=== PATIENT | female | born 1990 | race Caucasian/White ===

== ENCOUNTER 2018-08-24 00:26 | Emergency (ER) | payer SELFPAY ==
[~2018-08-24] VITALS: Ht 154.9 cm; Wt 67.1 kg
[2018-08-24 00:37] VITALS: BP 151/94
--- NOTE | 2018-08-24 00:40 | NUR ---
PT TO RAFAEL COLON, URINE SAMPLE CUP GIVEN, VSS, PT AMBULATORY.
--- NOTE | 2018-08-24 03:13 | NUR ---
CALLED FOR PT IN THE LOBBY AND GOT NO RESPONSE.
--- NOTE | 2018-08-24 03:20 | NUR ---
NO ANSWER @ 4140 AND 1766. PATIENT LEFT WITHOUT BEING SEEN BY DR. HAMMOND. NO FURTHER CARE PROVIDED FOR PATIENT.
== END 2018-08-24 03:20 | disposition left against medical advice (07) ==
LOC: MED 00:26
DX: R51 Headache (principal); R42 Dizziness and giddiness; Z53.21 Procedure and treatment not carried out due to patient leaving prior to being seen by health care provider

== ENCOUNTER 2018-11-22 16:07 | Emergency (ER) | payer MEDICAID ==
[~2018-11-22] VITALS: Ht 154.9 cm; Wt 64.0 kg
[2018-11-22 16:11] VITALS: BP 132/70
--- NOTE | 2018-11-22 16:15 | NUR ---
Note undone in EDM - 11/22/18 at 1649 by MED BIB FATHER. AAO X4 C/O SQUEEZING CHEST PAIN 9 X 1 HR AGO, HEADACHE , NAUSEA, VOMITING, DIZZINESS, TINGLING OF HANDS AND FEET. PT DENIES FEVER, SOB. PERRLA, BRISK 3 MM, FULL CLEAR SPEECH, FACIAL SYMMETRY, EQUAL ANIYAH STRENGTH TO UPPER AND LOWER EXTREMITIES. PT AMBULATED TO THE BATHROOM WITH STEADY GAIT. PT PLACED ON FULL JOINERY PATTERNMAKER. HOB UP. BED SIDE RAILS UP X1. ON LOW BED POSITION, LOCKED. ER TO ASSESS PT.
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
[2018-11-22] MEDS ORDERED: LORazepam 2 MG/ML VIAL IVP ONE (16:45)
[2018-11-22] MEDS ORDERED: PROMETHAZINE 25 MG SUPP RC ONE (16:45)
[2018-11-22] MEDS ORDERED: NACL 0.9% 2,000 ML IV SCH (16:45)
[2018-11-22] MEDS ORDERED: ONDANSETRON 4 MG/2 ML VIAL IVP ONE (16:45)
[2018-11-22] MEDS ORDERED: MECLIZINE 25 MG TAB PO ONE (16:45)
[2018-11-22 16:58] LABS: BASOPHILS % (AUTO) 0.3 % (0.0-2.0); EOSINOPHILS # (AUTO) 0.1 K/uL (0-0.4); EOSINOPHILS % (AUTO) 0.4 % (0.0-4.0); HEMATOCRIT 43.6 % (36-48); HEMOGLOBIN 15.1 g/dL (12.0-16.0); LYMPHOCYTES # (AUTO) 2.5 K/uL (2.5-16.5); LYMPHOCYTES % (AUTO) 19.2 % (20.5-51.1); MEAN CORPUSCULAR HEMOGLOBIN 30 pg (27-31); MEAN CORPUSCULAR HGB CONC 35 g/dL (33-37); MEAN CORPUSCULAR VOLUME 87.3 fL (80-94); MONOCYTES # (AUTO) 0.7 K/uL (0.8-1.0); MONOCYTES % (AUTO) 5.5 % (1.7-9.3); NEUTROPHILS # (AUTO) 9.8 K/uL (1.8-7.7); NEUTROPHILS % (AUTO) 74.6 % (42.2-75.2); PLATELET COUNT (AUTO) 237 K/uL (140-450); RED CELL DISTRIBUTION WIDTH 12.5 % (11.6-13.7); WHITE BLOOD COUNT (AUTO) 13.1 K/uL (4.8-10.8)
--- NOTE | 2018-11-22 17:00 | NUR ---
PT AAO X4. FULL CLEAR SPEECH. ABLE TO VERBALIZED NEEDS. CONVERSATING APPROPRIATELY. VSS. WILL CONTINUE TO MONITOR.
[2018-11-22 17:08] LABS: ANION GAP 15.6 (8-16); CARBON DIOXIDE 20.9 mmol/L (21-32); CREATININE 0.8 mg/dL (0.6-1.3); POTASSIUM 3.5 mmol/L (3.5-5.1)
[2018-11-22 17:14] LABS: ALBUMIN 4.2 g/dL (3.4-5.0); TOTAL BILIRUBIN 0.9 mg/dL (0.0-1.0)
--- NOTE | 2018-11-22 17:30 | NUR ---
PT AMBULATED TO THE BATHROOM WITH STEADY GAIT.
--- NOTE | 2018-11-22 17:38 | NUR ---
PT BACK TO BED WITH STEADY GAIT.
[2018-11-22 18:07] LABS: APPEARANCE,URINE CLEAR (CLEAR); BILIRUBIN,URINE NEGATIVE (NEGATIVE); BLOOD, URINE NEGATIVE (NEGATIVE); COLOR,URINE ORANGE (YELLOW); LEUKOCYTE ESTERASE ,URINE NEGATIVE (NEGATIVE); NITRITE, URINE NEGATIVE (NEGATIVE); UGLUCOSE NEGATIVE (NEGATIVE)
[2018-11-22 18:15] LABS: BARBITURATE, URINE NEG. ng/ml (NEG <=200); BENZODIAZEPINE, URINE NEG. ng/mL (NEG <=200); CANNABINOID, URINE NEG. ng/mL (NEG <=50); COCAINE, URINE NEG. ng/mL (NEG <=300); OPIATE, URINE NEG. ng/mL (NEG <=2000); PHENCYCLIDINE SCREEN,URINE NEG. ng/mL (NEG <=25)
--- NOTE | 2018-11-22 18:20 | NUR ---
PT TAKEN TO CT VIA BED BY E COMMER[employer] SPECIALIST
--- NOTE | 2018-11-22 18:31 | NUR ---
PT TAKEN TO ROOM VIA BED BY NUTTER UP
--- NOTE | 2018-11-22 18:45 | NUR ---
DR GODINEZ AT BEDSIDE FOR PT RE EVALUATION
--- NOTE | 2018-11-22 19:12 | NUR ---
Pt report given to ROLANDO Miles. Transfer of care at this time.
[2018-11-22 19:13] LABS: PROTHROMBIN TIME 10.6 secs (10.8-13.4)
[2018-11-22 19:15] VITALS: BP 102/61
--- NOTE | 2018-11-22 19:15 | NUR ---
Patient discharged with v/s stable. Written and verbal after care instructions given and explained. Patient alert, oriented and verbalized understanding of instructions. Ambulatory with steady gait. All questions addressed prior to discharge. ID band removed. Patient advised to follow up with PMD. Rx of ANITVERT AND PROMETHAZINE given. Patient educated on indication of medication including possible reaction and side effects. Opportunity to ask questions provided and answered.
[2018-11-22 19:48] LABS: D-DIMER < 100 ng/ml (0-400)
== END 2018-11-22 19:15 | disposition home or self-care (01) ==
LOC: MED 16:07
DX: T67.5XXA Heat exhaustion, unspecified, initial encounter (principal); E86.0 Dehydration; R07.89 Other chest pain; X30.XXXA Exposure to excessive natural heat, initial encounter; Y93.G3 Activity, cooking and baking; Y92.090 Kitchen in other non-institutional residence as the place of occurrence of the external cause; Y99.8 Other external cause status
CPT/HCPCS: 36415; 70450; 71045; 80053; 80305; 81003; 81025; 84484; 84703; 85025; 85379; 85610; 93005; 96361; 96374; 96375; 99284; J2060; J2405; J2550; J8597; J7030

== ENCOUNTER 2019-01-17 16:20 | Emergency (ER) | payer MEDICAID, OTHER ==
[~2019-01-17] VITALS: Ht 154.9 cm; Wt 65.3 kg
[2019-01-17 16:23] VITALS: BP 117/77
[2019-01-17 17:19] LABS: APPEARANCE,URINE CLEAR (CLEAR); BILIRUBIN,URINE NEGATIVE (NEGATIVE); BLOOD, URINE NEGATIVE (NEGATIVE); LEUKOCYTE ESTERASE ,URINE NEGATIVE (NEGATIVE); NITRITE, URINE NEGATIVE (NEGATIVE); UGLUCOSE NEGATIVE (NEGATIVE)
[2019-01-17 17:20] LABS: COLOR,URINE STRAW (YELLOW)
[2019-01-17 17:40] VITALS: BP 112/77
== END 2019-01-17 17:40 | disposition home or self-care (01) ==
LOC: MED 16:20
DX: K59.00 Constipation, unspecified (principal); R30.0 Dysuria
CPT/HCPCS: 74018; 81003; 81025; 99284; Q0092

== ENCOUNTER 2019-01-30 15:18 | Emergency (ER) | payer OTHER ==
[~2019-01-30] VITALS: Ht 154.9 cm; Wt 65.8 kg
[2019-01-30 15:23] VITALS: BP 146/79
--- NOTE | 2019-01-30 15:47 | NUR ---
28F C/O SORE THROAT AND COUGH X3 WEEKS. PT STATES PAIN HAS WORSENED TODAY AND IS AT 8/10. PT COUGHS UP THICK CLEAR YELLOW PHLEM. PAIN WORSENED BY EATING. STATES N/V X WEEKS. THINKS HER SORE THROAT IS DUE TO VOMITING. MEDHX:VERTIGO RX:OMEPRAZOLE
[2019-01-30 17:22] VITALS: BP 116/65
--- NOTE | 2019-01-30 17:22 | NUR ---
Patient discharged with v/s stable. Written and verbal after care instructions given and explained. Patient alert, oriented and verbalized understanding of instructions. Ambulatory with steady gait. All questions addressed prior to discharge. ID band removed. Patient advised to follow up with PMD. Rx of PREDNISONE 20 MG, MOTRIN 600 MG given. Patient educated on indication of medication including possible reaction and side effects. Opportunity to ask questions provided and answered.
== END 2019-01-30 17:22 | disposition home or self-care (01) ==
LOC: MED 15:18
DX: J02.9 Acute pharyngitis, unspecified (principal)
CPT/HCPCS: 99283

== ENCOUNTER 2019-02-03 10:37 | Emergency (ER) | payer OTHER ==
[~2019-02-03] VITALS: Ht 154.9 cm; Wt 65.3 kg
[2019-02-03 10:43] VITALS: BP 128/71
--- NOTE | 2019-02-03 10:50 | NUR ---
PATIENT AMBULATED TO BED 12
--- NOTE | 2019-02-03 11:00 | NUR ---
PT PRESENTS TO ED WITH C/O SORE THROAT, UNABLE TO SWALLOW, AND DIFFICULTY BREATHING FOR ONE WEEK. LUNGS CLEAR; O2 SAT 99% ON RA. NO ACCESSORY MUSCLE USE NOTED. PT AWAKE, ALERT AND ORIENTED TO PERSON, PLACE, TIME AND EVENT. DENIES ANY NAUSEA, VOMITING OR DIZZINESS. DENIES BLURRED/DOUBLE VISION. DENIES DRUG USE OR RECENT ILLNESS. CONNECTED TO TECHNICAL ADJUSTER; VSS. BED LOCKED AND IN LOWEST POSITION; ERMD TO EVALUATE PT. MED HX: ANXIETY, VERTIGO, MIGRAINES RX: DENIES
[2019-02-03 11:44] VITALS: BP 114/78
--- NOTE | 2019-02-03 11:44 | NUR ---
Patient discharged with v/s stable. Written and verbal after care instructions given and explained. Patient alert, oriented and verbalized understanding of instructions. Ambulatory with steady gait. All questions addressed prior to discharge. ID band removed. Patient advised to follow up with PMD. Rx of Omeprazole given. Patient educated on indication of medication including possible reaction and side effects. Opportunity to ask questions provided and answered.
== END 2019-02-03 11:44 | disposition home or self-care (01) ==
LOC: MED 10:37
DX: K20.9 Esophagitis, unspecified (principal); F41.9 Anxiety disorder, unspecified; G43.909 Migraine, unspecified, not intractable, without status migrainosus; Z88.8 Allergy status to other drugs, medicaments and biological substances
CPT/HCPCS: 99283

== ENCOUNTER 2019-02-05 13:50 | Emergency (ER) | payer OTHER ==
[~2019-02-05] VITALS: Ht 154.9 cm; Wt 65.3 kg
[2019-02-05 14:16] VITALS: BP 135/81
--- NOTE | 2019-02-05 15:15 | NUR ---
CALLED FIRST TIME, PT IS NOT IN THE LOBBY OR OUTSIDE.
--- NOTE | 2019-02-05 15:30 | NUR ---
CALLED 2ND TIME, PT IS NOT IN THE LOBBY OR BATHROOM.
--- NOTE | 2019-02-05 15:43 | NUR ---
3ND TIME CALLED PT, NO RESPOND, NOT IN THE LOBBY OR OUTSIDE, PT LEFT WITHIN BEING SEEN.
== END 2019-02-05 15:43 | disposition left against medical advice (07) ==
LOC: MED 13:50
DX: R07.0 Pain in throat (principal); Z53.21 Procedure and treatment not carried out due to patient leaving prior to being seen by health care provider

== ENCOUNTER 2019-03-13 03:19 | Emergency (ER) | payer OTHER ==
[~2019-03-13] VITALS: Ht 154.9 cm; Wt 66.2 kg
[2019-03-13 03:24] VITALS: BP 117/54
[2019-03-13 04:04] LABS: BASOPHILS % (AUTO) 0.3 % (0.0-2.0); EOSINOPHILS # (AUTO) 0.1 K/uL (0-0.4); EOSINOPHILS % (AUTO) 1.4 % (0.0-4.0); HEMATOCRIT 40.7 % (36-48); HEMOGLOBIN 13.9 g/dL (12.0-16.0); LYMPHOCYTES # (AUTO) 3.1 K/uL (2.5-16.5); LYMPHOCYTES % (AUTO) 29.8 % (20.5-51.1); MEAN CORPUSCULAR HEMOGLOBIN 30 pg (27-31); MEAN CORPUSCULAR HGB CONC 34 g/dL (33-37); MEAN CORPUSCULAR VOLUME 87.9 fL (80-94); MONOCYTES # (AUTO) 0.7 K/uL (0.8-1.0); MONOCYTES % (AUTO) 6.7 % (1.7-9.3); NEUTROPHILS # (AUTO) 6.4 K/uL (1.8-7.7); NEUTROPHILS % (AUTO) 61.8 % (42.2-75.2); PLATELET COUNT (AUTO) 219 K/uL (140-450); RED BLOOD CELL COUNT(AUTO) 4.63 MIL/uL (4.20-5.40); RED CELL DISTRIBUTION WIDTH 12.4 % (11.6-13.7); WHITE BLOOD COUNT (AUTO) 10.3 K/uL (4.8-10.8)
[2019-03-13] MEDS: ONDANSETRON 4 MG ODT PO ONE (04:04)
[2019-03-13] MEDS: FAMOTIDINE 20 MG TAB PO ONE (04:04)
[2019-03-13] MEDS: DICYCLOMINE HCL LIQUID 20 MG, ALUMINUM HYD/MAG/SIMETHICONE 30 ML, LIDOCAINE VISCOUS 2% ... PO ONE ×3 (04:06)
[2019-03-13 04:13] LABS: ANION GAP 12.1 (8-16); CARBON DIOXIDE 26.3 mmol/L (21-32); CREATININE 0.7 mg/dL (0.6-1.3); POTASSIUM 3.4 mmol/L (3.5-5.1)
[2019-03-13 04:19] LABS: ALBUMIN 3.8 g/dL (3.4-5.0); TOTAL BILIRUBIN 0.9 mg/dL (0.0-1.0)
[2019-03-13 05:00] VITALS: BP 120/70
== END 2019-03-13 05:00 | disposition home or self-care (01) ==
LOC: MED 03:19
DX: K21.9 Gastro-esophageal reflux disease without esophagitis (principal); K29.70 Gastritis, unspecified, without bleeding; K20.9 Esophagitis, unspecified; F41.9 Anxiety disorder, unspecified; R11.2 Nausea with vomiting, unspecified; Z88.8 Allergy status to other drugs, medicaments and biological substances
CPT/HCPCS: 36415; 80053; 81002; 81025; 83690; 85025; 99284; Q0162

== ENCOUNTER 2019-03-26 12:37 | Emergency (ER) | payer OTHER ==
[~2019-03-26] VITALS: Ht 154.9 cm; Wt 65.8 kg
[2019-03-26 12:44] VITALS: BP 110/69
--- NOTE | 2019-03-26 13:10 | NUR ---
PATIENT AMBULATED TO BED 7 AT THIS TIME.
--- NOTE | 2019-03-26 13:30 | NUR ---
28/F PRESENTS TO ED, C/O LOWER ABD PAIN X1 WEEK. REPORTS THAT SHE WAS CONSTIPATED 5 DAYS AGO, STARTED TAKING OTC MIRALAX AND THEN STARTED HAVING DIARRHEA X3 DAYS. DENIES FEVER, N/V. PT AWAKE AND ALERT, SKIN NORMAL COLOR WARM AND DRY, RRE EVEN AND UNLABORED. HX VERTIGO OTC MIRALAX
--- NOTE | 2019-03-26 13:30 | NUR ---
AT BEDSIDE EVALUATING PATIENT
[2019-03-26] MEDS ORDERED: KETOROLAC 60 MG/2 ML VIAL IM ONE (13:40)
[2019-03-26 14:27] VITALS: BP 115/67
--- NOTE | 2019-03-26 14:27 | NUR ---
Patient discharged with v/s stable. Written and verbal after care instructions given and explained. Patient alert, oriented and verbalized understanding of instructions. Ambulatory with steady gait. All questions addressed prior to discharge. ID band removed. Patient advised to follow up with PMD. Rx of Motrin and Tramadol given. Patient educated on indication of medication including possible reaction and side effects. Opportunity to ask questions provided and answered.
== END 2019-03-26 14:27 | disposition home or self-care (01) ==
LOC: MED 12:37
DX: R19.7 Diarrhea, unspecified (principal); Z88.8 Allergy status to other drugs, medicaments and biological substances
CPT/HCPCS: 74018; 81002; 81025; 96372; 99283; J1885; Q0092

== ENCOUNTER 2019-03-31 12:13 | Emergency (ER) | payer OTHER ==
[~2019-03-31] VITALS: Ht 165.1 cm; Wt 64.4 kg
[2019-03-31 12:16] VITALS: BP 107/65
--- NOTE | 2019-03-31 12:20 | NUR ---
PT TO BED 3 WITH STEADY GAIT
--- NOTE | 2019-03-31 12:26 | NUR ---
C/O LUQ AB PAIN X 3 DAYS. VOMIT YESTERDAY X 1. HARD BOWEL MOVEMENT TODAY. PAIN 9/10 PMH- MIGRAINES. PATIENT STATES PAIN OF 9/10 AT THIS TIME;PATIENT POSITIONED FOR COMFORT; HOB ELEVATED; BEDRAILS UP X1; BED DOWN. ER MD MADE AWARE OF PT STATUS.
--- NOTE | 2019-03-31 12:27 | NUR ---
Patient being evaluated by DR JACKMAN at bedside.
[2019-03-31] MEDS ORDERED: ACETAMINOPHEN 325 MG TAB PO ONE (12:30)
[2019-03-31 12:40] VITALS: BP 102/76
--- NOTE | 2019-03-31 12:40 | NUR ---
Patient discharged with v/s stable. Written and verbal after care instructions given and explained. Patient verbalized understanding. Ambulatory with steady gait. All questions addressed prior to discharge. Advised to follow up with PMD.
== END 2019-03-31 12:40 | disposition home or self-care (01) ==
LOC: MED 12:13
DX: S29.011A Strain of muscle and tendon of front wall of thorax, initial encounter (principal); Z88.8 Allergy status to other drugs, medicaments and biological substances; X58.XXXA Exposure to other specified factors, initial encounter; Y92.89 Other specified places as the place of occurrence of the external cause; Y93.89 Activity, other specified; Y99.8 Other external cause status
CPT/HCPCS: 99282

== ENCOUNTER 2019-04-03 13:06 | Emergency (ER) | payer OTHER ==
[~2019-04-03] VITALS: Ht 157.5 cm; Wt 64.1 kg
[2019-04-03 13:14] VITALS: BP 123/87
[2019-04-03 13:59] VITALS: BP 123/87
--- NOTE | 2019-04-03 14:00 | NUR ---
PT BIB SELF FOR "TONGUE BURNING" PT STATES SHE WOKE UP THIS AND HAD GASTRIC REFLUX SHE TOOK RANTIDINE AND NOW ONLY HER TONGUE HURTS. PT STATES SHE HAS NAUSEA AT THIS TIME. ABD FLAT, SOFT, NON TENDER. PT AWAKE AND ALERT.
--- NOTE | 2019-04-03 14:00 | NUR ---
Note flora in EDM - 04/03/19 at 1448 by MILADYS PT TO ED FOR C/O TONGUE PAIN. PT STATES "MY ACID REFLUZ WAS REALLY BAD AND THEN IT TRANSFERRED TO MY TONGUE" NO DENIES DIFFICULTY SWALLOWING. SPEAKING IN CLEAR SENTENCES. NO DROOLING. PT IN BED FOR MD PUENTES.
--- NOTE | 2019-04-03 14:50 | NUR ---
PATIENT LEFT WITHOUT BEING SEEN BY DR. DOUGLASS. NO FURTHER CARE PROVIDED FOR PATIENT.
== END 2019-04-03 14:50 | disposition left against medical advice (07) ==
LOC: MED 13:06
DX: K21.9 Gastro-esophageal reflux disease without esophagitis (principal); Z53.21 Procedure and treatment not carried out due to patient leaving prior to being seen by health care provider

== ENCOUNTER 2019-04-05 17:29 | Emergency (ER) | payer OTHER ==
[~2019-04-05] VITALS: Ht 154.9 cm; Wt 64.0 kg
[2019-04-05 17:46] VITALS: BP 130/76
[2019-04-05] MEDS ORDERED: EPINEPHrine 1:1000 - 1 MG/ML AMP IM ONE (18:10)
[2019-04-05] MEDS ORDERED: diphenhydrAMINE 50 MG/ML VIAL IVP ONE (18:10)
[2019-04-05] MEDS: FAMOTIDINE 20 MG/2 ML VIAL IVP ONE ×2 (18:33→18:42)
[2019-04-05] MEDS: NACL 0.9% 1,000 ML IV ONE ×2 (18:33→18:42)
[2019-04-05 20:07] VITALS: BP 113/73
== END 2019-04-05 20:05 | disposition home or self-care (01) ==
LOC: MED 17:29
DX: T45.0X5A Adverse effect of antiallergic and antiemetic drugs, initial encounter (principal); Z88.8 Allergy status to other drugs, medicaments and biological substances; Y92.89 Other specified places as the place of occurrence of the external cause
CPT/HCPCS: 96372; 96374; 99283; J0171; J1200; J3490

== ENCOUNTER 2019-04-18 10:58 | Emergency (ER) | payer OTHER ==
[~2019-04-18] VITALS: Ht 154.9 cm; Wt 62.6 kg
[2019-04-18 11:29] VITALS: BP 108/65
--- NOTE | 2019-04-18 11:57 | NUR ---
AMBULATED TO ER BED 5
--- NOTE | 2019-04-18 12:17 | NUR ---
PATIENT PRESENTS TO ED WITH C/O CRAMPING AND BURNING MID ABD RADIATING TO EPIGASTRIC PAIN 8/10 SINCE LAST NIGHT. +NAUSEA AND DIARRHEAS, TOOK AMOXICILLIN AND LIDOCAINE NIGHT WITH FOOD, PAIN START SOON AFTER. STATED UPPER GI ENDOSCOPY 1 WK AGO FOR LUQ PAIN AND THROAT PAIN/DYSPHAGIA, NO RESULTS YET. HX- GERD, VERTIGO . VSS; PATIENT POSITIONED FOR COMFORT; HOB ELEVATED; BEDRAILS UP X2; BED DOWN. ER MD MADE AWARE OF PT STATUS.
--- NOTE | 2019-04-18 12:30 | NUR ---
Patient being evaluated by physician at bedside.
[2019-04-18] MEDS ORDERED: NACL 0.9% 1,000 ML IV ONE (12:35)
[2019-04-18] MEDS ORDERED: NACL 0.9% 1,000 ML IV SCH (12:35)
[2019-04-18 13:21] LABS: BASOPHILS % (AUTO) 0.4 % (0.0-2.0); EOSINOPHILS % (AUTO) 0.5 % (0.0-4.0); HEMATOCRIT 43.1 % (36-48); HEMOGLOBIN 14.6 g/dL (12.0-16.0); LYMPHOCYTES # (AUTO) 1.5 K/uL (2.5-16.5); MEAN CORPUSCULAR HEMOGLOBIN 30 pg (27-31); MEAN CORPUSCULAR HGB CONC 34 g/dL (33-37); MEAN CORPUSCULAR VOLUME 89.2 fL (80-94); MONOCYTES # (AUTO) 0.4 K/uL (0.8-1.0); MONOCYTES % (AUTO) 5.7 % (1.7-9.3); NEUTROPHILS # (AUTO) 5.1 K/uL (1.8-7.7); NEUTROPHILS % (AUTO) 72.4 % (42.2-75.2); PLATELET COUNT (AUTO) 235 K/uL (140-450); RED BLOOD CELL COUNT(AUTO) 4.83 MIL/uL (4.20-5.40); RED CELL DISTRIBUTION WIDTH 12.8 % (11.6-13.7)
--- NOTE | 2019-04-18 13:30 | NUR ---
PT IS RESTING IN BED, NO S/S OF DISTRESS, DENIES PAIN, VSS.
[2019-04-18 13:34] LABS: ALBUMIN 4.5 g/dL (3.4-5.0); ANION GAP 14.2 (8-16); CARBON DIOXIDE 27.9 mmol/L (21-32); CREATININE 0.6 mg/dL (0.6-1.3); POTASSIUM 4.1 mmol/L (3.5-5.1); TOTAL BILIRUBIN 1.6 mg/dL (0.0-1.0)
[2019-04-18 14:55] LABS: APPEARANCE,URINE CLEAR (CLEAR); BILIRUBIN,URINE NEGATIVE (NEGATIVE); BLOOD, URINE TRACE-I (NEGATIVE); COLOR,URINE OTHER (YELLOW); LEUKOCYTE ESTERASE ,URINE 2+ (NEGATIVE); NITRITE, URINE NEGATIVE (NEGATIVE); PH,URINE 6.5 (5.0-9.0); UGLUCOSE NEGATIVE (NEGATIVE)
[2019-04-18 15:05] VITALS: BP 108/65
--- NOTE | 2019-04-18 15:05 | NUR ---
Patient discharged with v/s stable. Written and verbal after care instructions given and explained. Rx of FAMOTIDINE, PROTONIX given. Patient educated on indication of medication including possible reaction and side effects. All questions addressed prior to discharge. ID band removed. IV REMORVED, Patient advised to follow up with PMD.
[2019-04-18 15:19] LABS: BARBITURATE, URINE NEG. ng/ml (NEG <=200); BENZODIAZEPINE, URINE NEG. ng/mL (NEG <=200); CANNABINOID, URINE NEG. ng/mL (NEG <=50); COCAINE, URINE NEG. ng/mL (NEG <=300); OPIATE, URINE NEG. ng/mL (NEG <=2000); PHENCYCLIDINE SCREEN,URINE NEG. ng/mL (NEG <=25)
[2019-04-18 15:38] LABS: RBC,URINE 0-5 /HPF (0-5)
== END 2019-04-18 15:05 | disposition home or self-care (01) ==
LOC: MED 10:58
DX: R10.84 Generalized abdominal pain (principal); K21.9 Gastro-esophageal reflux disease without esophagitis; Z88.8 Allergy status to other drugs, medicaments and biological substances
CPT/HCPCS: 36415; 74176; 76705; 80053; 80305; 81001; 81025; 82150; 82977; 83690; 85025; 87086; 99284; J7030; Q0092

== ENCOUNTER 2019-12-06 04:22 | Emergency (ER) | payer OTHER ==
[~2019-12-06] VITALS: Ht 157.5 cm; Wt 65.8 kg
[2019-12-06 04:31] VITALS: BP 123/74
--- NOTE | 2019-12-06 04:32 | NUR ---
PT AMBULATED TO BED 4 WITH STEADY GAIT
[2019-12-06 04:38] VITALS: BP 123/74
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
[2019-12-06] MEDS ORDERED: KETOROLAC 30 MG/ML VIAL IVP ONE (04:40)
[2019-12-06] MEDS ORDERED: NACL 0.9% 1,000 ML IV ONE (04:40)
--- NOTE | 2019-12-06 04:49 | NUR ---
ERMD BEDSIDE EVALUATING PT
[2019-12-06] MEDS ORDERED: PROCHLORPERAZINE 10 MG/2 ML VIAL IVP ONE (04:55)
[2019-12-06 04:57] LABS: BASOPHILS # (AUTO) 0.1 K/uL (0.00-0.22); BASOPHILS % (AUTO) 0.9 % (0.0-2.0); EOSINOPHILS # (AUTO) 0.1 K/uL (0-0.4); EOSINOPHILS % (AUTO) 1.3 % (0.0-4.0); HEMATOCRIT 41.9 % (36-48); HEMOGLOBIN 14.3 g/dL (12.0-16.0); LYMPHOCYTES # (AUTO) 2.6 K/uL (2.5-16.5); LYMPHOCYTES % (AUTO) 32.7 % (20.5-51.1); MEAN CORPUSCULAR HEMOGLOBIN 30 pg (27-31); MEAN CORPUSCULAR HGB CONC 34 g/dL (33-37); MEAN CORPUSCULAR VOLUME 87.4 fL (80-94); MONOCYTES # (AUTO) 0.5 K/uL (0.8-1.0); MONOCYTES % (AUTO) 6.8 % (1.7-9.3); NEUTROPHILS # (AUTO) 4.6 K/uL (1.8-7.7); NEUTROPHILS % (AUTO) 58.3 % (42.2-75.2); PLATELET COUNT (AUTO) 232 K/uL (140-450); RED BLOOD CELL COUNT(AUTO) 4.79 MIL/uL (4.20-5.40); RED CELL DISTRIBUTION WIDTH 12.5 % (11.6-13.7)
[2019-12-06 05:14] LABS: ALBUMIN 4.4 g/dL (3.4-5.0); ANION GAP 15.5 (8-16); CARBON DIOXIDE 24.3 mmol/L (21-32); CREATININE 0.8 mg/dL (0.6-1.3); POTASSIUM 3.8 mmol/L (3.5-5.1); TOTAL BILIRUBIN 1.2 mg/dL (0.0-1.0)
== END 2019-12-06 05:36 | disposition home or self-care (01) ==
LOC: MED 04:22
DX: A05.9 Bacterial foodborne intoxication, unspecified (principal); K21.9 Gastro-esophageal reflux disease without esophagitis; Z88.8 Allergy status to other drugs, medicaments and biological substances
CPT/HCPCS: 36415; 80053; 81025; 83690; 85025; 96361; 96374; 96375; 99284; J0780; J1885; J7030

== ENCOUNTER 2021-04-14 23:14 | Emergency (ER) | payer OTHER ==
[~2021-04-14] VITALS: Ht 154.9 cm; Wt 68.0 kg
[2021-04-14 23:14] VITALS: BP 131/72
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
[2021-04-15] MEDS ORDERED: IBUPROFEN 800 MG TAB PO ONE ×2 (00:10→04:05)
[2021-04-15] MEDS ORDERED: MORPHINE SULFATE 4 MG/ML SYR IVP ONE (01:45)
[2021-04-15] MEDS ORDERED: ONDANSETRON 4 MG/2 ML VIAL IVP ONE (01:45)
--- NOTE | 2021-04-15 01:45 | NUR ---
PT. REFUSED ZOFRAN AND MORPHINE MEDICATION CITING "THAT WILL TRIGGER MY VERTIGO." BRANDY GUZMAN MADE AWARE
[2021-04-15] MEDS ORDERED: HYDROcodone/APAP 5/325 MG 1 TAB TAB PO ONE (02:10)
--- NOTE | 2021-04-15 02:14 | NUR ---
PT. STATES "I WANT TO THINK ABOUT TAKING THE NORCO BECAUSE I DON'T WANT TO TRIGGER MY VERTIGO." BRANDY GUZMAN MADE AWARE.
[2021-04-15 02:23] LABS: BASOPHILS % (AUTO) 0.2 % (0.0-2.0); HEMATOCRIT 43.6 % (36-48); HEMOGLOBIN 14.9 g/dL (12.0-16.0); LYMPHOCYTES # (AUTO) 1.1 K/uL (2.5-16.5); LYMPHOCYTES % (AUTO) 5.5 % (20.5-51.1); MEAN CORPUSCULAR HEMOGLOBIN 29 pg (27-31); MEAN CORPUSCULAR HGB CONC 34 g/dL (33-37); MEAN CORPUSCULAR VOLUME 85.9 fL (80-94); MONOCYTES # (AUTO) 0.7 K/uL (0.8-1.0); MONOCYTES % (AUTO) 3.4 % (1.7-9.3); NEUTROPHILS # (AUTO) 18.7 K/uL (1.8-7.7); PLATELET COUNT (AUTO) 307 K/uL (140-450); RED BLOOD CELL COUNT(AUTO) 5.08 MIL/uL (4.20-5.40); RED CELL DISTRIBUTION WIDTH 12.9 % (11.6-13.7); WHITE BLOOD COUNT (AUTO) 20.6 K/uL (4.8-10.8)
--- NOTE | 2021-04-15 02:24 | NUR ---
PT. TAKEN TO CT VIA W/C
[2021-04-15 02:30] LABS: NEUTROPHILS % (AUTO) 90.9 % (42.2-75.2)
[2021-04-15 02:36] LABS: ALBUMIN 4.6 g/dL (3.4-5.0); ANION GAP 16.1 (8-16); CARBON DIOXIDE 24.5 mmol/L (21-32); CREATININE 0.8 mg/dL (0.6-1.3); POTASSIUM 3.6 mmol/L (3.5-5.1); TOTAL BILIRUBIN 0.9 mg/dL (0.0-1.0)
[2021-04-15] MEDS ORDERED: IBUP-2218 PO (04:05)
[2021-04-15 04:26] VITALS: BP 131/72
[2021-04-15] MEDS ORDERED: MECL-231 PO (05:58)
[2021-04-15] MEDS ORDERED: HYDR-5080 PO (05:58)
== END 2021-04-15 04:22 | disposition home or self-care (01) ==
LOC: MED 23:14
DX: S62.394A Other fracture of fourth metacarpal bone, right hand, initial encounter for closed fracture (principal); S62.396A Other fracture of fifth metacarpal bone, right hand, initial encounter for closed fracture; K21.9 Gastro-esophageal reflux disease without esophagitis; Z88.8 Allergy status to other drugs, medicaments and biological substances; Z79.899 Other long term (current) drug therapy; V49.9XXA Car occupant (driver) (passenger) injured in unspecified traffic accident, initial encounter; Y93.89 Activity, other specified; Y92.89 Other specified places as the place of occurrence of the external cause; Y99.8 Other external cause status
CPT/HCPCS: 29125; 36415; 71045; 71260; 73090; 73130; 74177; 80053; 81025; 84484; 84703; 85025; 93005; 99285; Q0092; Q9967